=== PATIENT | male | born 1965 | race Caucasian/White ===

== ENCOUNTER 2019-12-21 08:51 | Outpatient (CLI) | payer OTHER, SELFPAY ==
--- NOTE | 2019-12-21 | ECHO_ITS ---
Patient Info Name: Joel Delcid Age: 54 years : 1965 Gender: Male Ht: 68 in Wt: 200 lbs BSA: 2.11 m2 HR: 72 bpm BP: 132 / 81 mmHg Heart Rhythm: Sinus Rhythm Technical Quality: Good Exam Date: 12/21/2019 9:11 AM Exam Location: [facility] Patient Status: Outpatient Admit Date: 12/21/2019 Staff Ordering Physician: Sina River DO Qualification Engineer: Nita Shoemaker RDCS Attending Provider: Sina River DO Referring Physician: Perico PATRICIO; Exam Type: CA echo doppler color flow Study Info Indications - dyspnea on exertion Complete two-dimensional, color flow and Doppler transthoracic echocardiogram is performed. Summary 1. Left ventricular chamber dimension is normal. 2. Left ventricular systolic function is normal, estimated at 60-65%. 3. The left ventricular diastolic function is normal. 4. E/e' 8 is minimally elevated. 5. There is mild tricuspid valve regurgitation. 6. Mild pulmonary hypertension, estimated pulmonary arterial systolic pressure is 47 mmHg. 7. There is trace pulmonic regurgitation. Left Ventricle E/e' 8 is minimally elevated. Left ventricular chamber dimension is normal. Left ventricular systolic function is normal, estimated at 60-65%. The left ventricular diastolic function is normal. Right Ventricle Right ventricular chamber dimension is normal. Right ventricular systolic function is normal. Left Atria Left atrial chamber dimension is normal. Right Atria Right atrial chamber dimension is normal. Aortic Valve The aortic valve is trileaflet. There is no aortic valve stenosis. There is no aortic valve regurgitation. Pulmonic Valve There is trace pulmonic regurgitation. Mitral Valve There is no mitral valve stenosis. There is no mitral valve regurgitation. Tricuspid Valve There is mild tricuspid valve regurgitation. Mild pulmonary hypertension, estimated pulmonary arterial systolic pressure is 47 mmHg. Pericardium/Pleural There is no pericardial effusion. Inferior Vena Cava Normal inferior vena cava with >50% collapse upon inspiration consistent with normal right atrial pressure, 5 mmHg. Aorta The aortic root size at the sinus of Valsalva is normal. Left Ventricular Outflow Tract Name Value Normal LVOT 2D LVOT Diameter 2.0 cm LVOT Doppler LVOT Peak Velocity 145 cm/s LVOT Peak Gradient 8 mmHg LVOT Mean Gradient 4 mmHg LVOT VTI 27 cm LVOT VTI/AV VTI Ratio 0.7 LVOT Stroke Volume 84 ml LVOT CO 16.3 l/min LVOT CI 7.7 l/min/m2 Pulmonic Valve Name Value Normal RVOT Doppler RVOT Peak Gradient 3 mmHg PV Doppler
== END 2019-12-21 08:52 | disposition home or self-care (01) ==
PROVIDERS: PCP Internal Medicine; Visit Provider Internal Medicine Cardiovascular Disease
DX: R06.09 Other forms of dyspnea (principal); I08.3 Combined rheumatic disorders of mitral, aortic and tricuspid valves
CPT/HCPCS: 93306

== ENCOUNTER 2019-12-28 08:50 | Outpatient (RCR) | payer OTHER, SELFPAY ==
--- NOTE | 2019-12-28 10:06 | PTOPEVAL ---
INITIAL PHYSICAL THERAPY EVALUATION Thank you for referring Joel to [facility]. PT eval revealed + BPPV for R horizontal and posterior canals. Eply corrective maneuver was performed for R horizontal canal, precautions and self corrective technique were given. Self correction of R horizontal canal was also reviewed and home corrective technique was given. Follow phone call will be made next week to check on his progress. If further PT is needed, will set up at that time and POC will be developed. I agree with and certify the PT evaluation and corrective technique that was performed this date. Referring Physician Date Admitting Provider: Attending Provider: Kana Garcia, Referring Provider: *PT Outpatient Evaluation Start: 12/28/19 09:06 Freq: Status: Active Protocol: Document 12/28/19 09:06 OSIEL (Rec: 12/28/19 10:05 OSIEL [id number]) Therapy Assessment Status Assessment Status Assessment Status Evaluation Outpatient Past Medical History Neurological History Hx Neurological Disorders No Significant History Cardiovascular History Hx Hypercholesterolemia Yes Respiratory History Hx Respiratory Disorders No Significant History Gastrointestinal History Hx Gastrointestinal Disorders No Significant History Genitourinary History Hx Genitourinary Disorders No Significant History Musculoskeletal History Hx Other Musculoskeletal Disorders Yes: bilateral carpal tunnel surgery Endocrine History Hx Diabetes Yes: type 2 Evaluation Information Problem Diagnosis vertigo Onset about 1 month ago Subjective Information noticed dizziness with lying Query Text:As Reported By Patient/ down, sitting up, turning head Family to look up with work activities Prior Level of Function Activity Level (Last 3 Months) 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 Home Meds Must Be Re-entered With Each Visit. Home Setting Home Type House,Multiple Levels Environmental Barriers Stairs, Greater than 4 Living Situation With Spouse Mobility Assistive Devices (Used Last 3 None Months) Comments Additional Prior Level of Function recreation - hunting, golfing Comments Pain Assessment Timing of Pain Assessment Timing of Pain Assessment Assessment Self Report Self Report Pain Level 0 Pain Score Pain Score 0: Self Report Vestibular Evaluation Vestibular Medical Information Other Symptoms Comments rolling over in bed, lying/
--- NOTE | 2020-01-06 10:36 | PCPTNOTE ---
Follow up phone call was made 01/04/2020 - he is no longer having dizziness symptoms. Will d/c from PT - he has corrective technique hand outs.
== END 2020-01-06 13:27 | disposition home or self-care (01) ==
LOC: ANHHIPT 08:50
PROVIDERS: PCP Internal Medicine; Visit Provider Internal Medicine
DX: R42 Dizziness and giddiness (principal)
CPT/HCPCS: 97161